=== PATIENT | male | born 1945 | race Caucasian/White ===

== ENCOUNTER 2016-12-24 15:49 | Inpatient (IN) | payer MEDICAID, MEDICARE, OTHER ==
[~2016-12-24] VITALS: Ht 172.7 cm; Wt 119.7 kg
--- NOTE | 2016-12-24 15:56 | NUR ---
PT [facility]IBRA FROM [facility] TO ER BED 09. SEND BY DR HERNANDEZ FOR ABNORMAL LABS. BUN 86 AND CREATININE 4.75. PT IS AAO, VERBALLY RESPONSIVE. GOWNED AND PLACED ON MONITOR. VSS. BLE DISCOLORATION UPON INITIAL ASSESSMENT. AWAITING MD NGO.
--- NOTE | 2016-12-24 15:57 | NUR ---
DR ROTHMAN AT BEDSIDE FOR EVAL.
--- NOTE | 2016-12-24 16:12 | NUR ---
IV LINE STARTED BLOOD DRAWN AND SENT TO LAB.
[2016-12-24 16:18] LABS: BASOPHILS # (AUTO) 0.1 /CMM (0.0-0.2); BASOPHILS % (AUTO) 1.4 % (0.0-2.0); EOSINOPHILS # (AUTO) 0.1 /CMM (0.0-0.7); EOSINOPHILS % (AUTO) 0.8 % (0.0-6.0); HEMATOCRIT 35 % (39-51); HEMOGLOBIN 11.8 g/dL (13.5-17.5); LYMPHOCYTES # (AUTO) 0.9 /CMM (0.8-4.8); LYMPHOCYTES % (AUTO) 8.7 % (20.0-44.0); MEAN CORPUSCULAR HEMOGLOBIN 33 PG (26.0-33.0); MEAN CORPUSCULAR HGB CONC 34 g/dl (31.0-36.0); MEAN CORPUSCULAR VOLUME 97 fL (80-96); MONOCYTES # (AUTO) 0.9 /CMM (0.1-1.30); MONOCYTES % (AUTO) 8.9 % (2.0-12.0); NEUTROPHILS # (AUTO) 7.9 /CMM (1.8-8.9); NEUTROPHILS % (AUTO) 80.2 % (43.0-81.0); PLATELET COUNT (AUTO) 136 /CMM (150-450); RDW COEFFICIENT OF VARIATION 13.8 (11.5-15.0); RED BLOOD CELL COUNT(AUTO) 3.64 MIL/uL (4.5-6.0); WHITE BLOOD COUNT (AUTO) 9.9 K/uL (4.3-11.0)
[2016-12-24] MEDS ORDERED: HYDR-3326 PO (16:39)
[2016-12-24] MEDS ORDERED: AMIO200T2 PO (16:39)
[2016-12-24] MEDS ORDERED: SENN8.6T6 PO (16:39)
[2016-12-24] MEDS ORDERED: BLOO-668 IN (16:39)
[2016-12-24] MEDS ORDERED: DABI150C PO (16:39)
[2016-12-24] MEDS ORDERED: INSU100V7 SQ (16:39)
[2016-12-24] MEDS ORDERED: INSU100V27 SQ (16:39)
[2016-12-24] MEDS ORDERED: GABA-532 PO (16:39)
[2016-12-24] MEDS ORDERED: FURO-144 PO (16:39)
[2016-12-24] MEDS ORDERED: QUET25TA PO ×2 (16:39)
[2016-12-24] MEDS ORDERED: IPRA0.2S9 IH ×2 (16:39)
[2016-12-24] MEDS ORDERED: BENZ-13 PO (16:39)
[2016-12-24] MEDS ORDERED: DOCU-270 PO (16:39)
[2016-12-24] MEDS ORDERED: MAG30ORA PO (16:39)
[2016-12-24] MEDS ORDERED: BISA10SU8 RC (16:39)
[2016-12-24] MEDS ORDERED: ALBU2.5V13 IH ×2 (16:39)
[2016-12-24] MEDS ORDERED: DIVA500T7 PO ×2 (16:39)
[2016-12-24] MEDS ORDERED: DILT120T2 PO (16:39)
[2016-12-24] MEDS ORDERED: LACT10SO7 PO (16:39)
[2016-12-24] MEDS ORDERED: LOPE2TAB25 PO (16:39)
[2016-12-24] MEDS ORDERED: MEMA5TAB PO (16:39)
[2016-12-24 16:41] LABS: INR 3.9 (0.87-1.13); PROTHROMBIN TIME 43.6 SECS (9.5-12.7)
[2016-12-24 16:52] LABS: ALBUMIN 2.4 g/dL (3.4-5.0); BILIRUBIN,DIRECT 0.1 mg/dL (0.0-0.2); BILIRUBIN,TOTAL 0.2 mg/dL (0.2-1.0); CALCIUM, SERUM 8.1 mg/dL (8.5-10.1); CREATININE 4.7 mg/dL (0.6-1.3); POTASSIUM 4.2 mmol/L (3.5-5.1); TOTAL PROTEIN, SERUM 5.7 g/dL (6.4-8.2)
--- NOTE | 2016-12-24 17:20 | NUR ---
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 DR. SHEIKH.
--- NOTE | 2016-12-24 17:35 | NUR ---
DR. ROTHMAN ON THE PHONE WITH DR. SHEIKH.
[2016-12-24] MEDS ORDERED: IV NS 0.9% 1,000 ML IV PRN (17:47)
[2016-12-24] MEDS ORDERED: BISACODYL SUPP (10 MG) 10 MG/SUPP.RECT SUPP.RECT RC PRN (18:00)
[2016-12-24] MEDS ORDERED: Z GUARD REMEDY 2 OZ OINT TP PRN (18:00)
[2016-12-24] MEDS ORDERED: ZOLPIDEM TARTRATE 5 MG TABLET PO PRN (18:00)
[2016-12-24] MEDS ORDERED: DEXTROSE 50%-WATER 50 ML DISP.SYRIN IV PRN (18:00)
[2016-12-24] MEDS ORDERED: BENZONATATE 100 MG CAPSULE PO PRN (18:00)
[2016-12-24] MEDS ORDERED: ACETAMINOPHEN 325 MG TABLET PO PRN (18:00)
[2016-12-24] MEDS ORDERED: IPRATROPIUM NEB FS 0.5 MG/2.5 ML AMPUL.NEB IH PRN (18:00)
[2016-12-24] MEDS ORDERED: ONDANSETRON HCL/PF 4 MG/2 ML VIAL IVP PRN (18:00)
--- NOTE | 2016-12-24 18:19 | NUR ---
PT TO RADIOLOGY FOR HEAD CT SCAN VIA [facility].
--- NOTE | 2016-12-24 19:05 | NUR ---
TELE/RN NOTES NEW ADMITTED PATIENT IS A 71YO MALE WHO ARRRIVED FROM ER FROM [facility] DUE TO ABNORMAL LABS.DX WITH ARF. PATIENT ALERTX1. CONFUSED AND ABLE TO ANSWER WITH TOUCH AND VOICE.WITH HX OF DM, HTN HLD, HF, DEMENTIA CHF AFIB GERD, CHRONIC BACK PAIN, COPD AND PSYCHOSIS.ON TELE, READING AT SR WITH 1ST DEGREE AV BLOCK AND PAC. WITH MENDOZA.REPORTED ABDOMINAL DISTENTION AND REQUIRE MENDOZA AT THIS TIME TO ASSIST. SKIN INTACT WITH DRYNESS.ON CARDIAC DIET, ASPIRATION PRECAUTION.VITAL SIGNS B/P113/64, PULSE 71, R-18, TEMP 97.6. NO PAIN OBSERVED, NO GUARDING AND NO GRIMACE BUT REQUIRE 3L OXYGEN VIA NC
[2016-12-24] MEDS ORDERED: ALBUTEROL FS 2.5 MG/3 ML VIAL.NEB NEB PRN (19:30)
[2016-12-24] MEDS ORDERED: IV SET PRIMARY PUMP SET 1 EA INFUS.SET MC ONE (19:46)
[2016-12-24 20:00] VITALS: BP 111/64
[2016-12-24 20:06] VITALS: BP 113/64
[2016-12-24] MEDS: DIVALPROEX SODIUM 250 MG TABLET.DR PO SCH (21:17)
[2016-12-24] MEDS: QUETIAPINE FUMARATE 100 MG TABLET PO SCH (21:18)
[2016-12-24] MEDS: BLOOD SUGAR DIAGNOSTIC 1 EACH STRIP VI SCH (22:32)
--- NOTE | 2016-12-25 00:03 | NUR ---
TELE/RN NOTES RECEIVED NEW MD ORDER TO COLLECT STOOL ( OCCULT) PER MD ORDER STATING THAT [facility] 2 BLACK STOOL.
[2016-12-25 04:00] VITALS: BP 101/57
[2016-12-25] MEDS: BLOOD SUGAR DIAGNOSTIC 1 EACH STRIP VI SCH ×4 (05:26→22:23)
[2016-12-25] MEDS: *INSULIN REGULAR(HUMULIN R)HUM 100 UNIT/ML VIAL SQ PRN (05:28)
[2016-12-25] MEDS: INSULIN REGULAR, HUMAN 100 UNIT/ML 3 ML VIAL SQ PRN ×3 (05:29→17:14)
--- NOTE | 2016-12-25 06:10 | NUR ---
MS/RN CLOSING NOTES PATIENT IN BED, HOB, AWAKE AND ABLE TO VERBALIZE NEEDS. MORE ALERT AND CAN RESPOND MORE STATED " I FEEL BETTER"ATTEND TO NEEDS. CALL LIGHTS WITHIN REACH. IV ATB ADMINISTERED W/ NO S/S OF ADVERSE REACTION. NO SOB OR DISTRESS. WILL ENDORSE TO AM RN FOR TIFFANY.
[2016-12-25] MEDS: HYDROCODONE/APAP 5/325MG 1 EACH TABLET PO PRN ×2 (06:22→14:43)
[2016-12-25 06:26] VITALS: BP 112/63
--- NOTE | 2016-12-25 06:27 | NUR ---
MS/RN NOTES REPORTED GENERALIZED PAIN OF 7/10, REQUESTED FOR NORCO 5-325 MG PO TAB, PATIENT TOLERATE MEDICATION.WILL RE ASSESS FOR EFFECTIVENESS.
[2016-12-25 06:34] LABS: BASOPHILS % (AUTO) 0.3 % (0.0-2.0); EOSINOPHILS # (AUTO) 0.1 /CMM (0.0-0.7); EOSINOPHILS % (AUTO) 0.5 % (0.0-6.0); HEMATOCRIT 32 % (39-51); HEMOGLOBIN 10.7 g/dL (13.5-17.5); LYMPHOCYTES % (AUTO) 9.6 % (20.0-44.0); MEAN CORPUSCULAR HEMOGLOBIN 33 PG (26.0-33.0); MEAN CORPUSCULAR HGB CONC 34 g/dl (31.0-36.0); MEAN CORPUSCULAR VOLUME 97 fL (80-96); MONOCYTES # (AUTO) 1.1 /CMM (0.1-1.30); MONOCYTES % (AUTO) 10.8 % (2.0-12.0); NEUTROPHILS # (AUTO) 8.3 /CMM (1.8-8.9); NEUTROPHILS % (AUTO) 78.8 % (43.0-81.0); PLATELET COUNT (AUTO) 151 /CMM (150-450); RDW COEFFICIENT OF VARIATION 14.6 (11.5-15.0); RED BLOOD CELL COUNT(AUTO) 3.27 MIL/uL (4.5-6.0); WHITE BLOOD COUNT (AUTO) 10.6 K/uL (4.3-11.0)
[2016-12-25 06:47] LABS: CALCIUM, SERUM 7.9 mg/dL (8.5-10.1); CREATININE 3.3 mg/dL (0.6-1.3); PHOSPHORUS 6.8 mg/dL (2.5-4.9); POTASSIUM 3.9 mmol/L (3.5-5.1)
[2016-12-25 06:48] LABS: MAGNESIUM 2.6 mg/dL (1.8-2.4)
--- NOTE | 2016-12-25 07:00 | NUR ---
PMO CONSULTANT OPENING NOTES REPORT RECEIVED AT THE BEDSIDE. PATIENT IS SLEEPING. NO SOB OR DISTRESS NOTED AT THIS TIME. PATIENT DOES NOT APPEAR TO BE IN PAIN, NO FACIAL GRIMACE NOTED. HEART RATE SR 67 WITH BBB ON THE MONITOR. BED IN A LOW POSITION, CALL LIGHT WITHIN PATIENT REACH. WILL CONTINUE TO MONITOR.
[2016-12-25 08:00] VITALS: BP 121/61
[2016-12-25] MEDS: DIVALPROEX SODIUM 500 MG TABLET.DR PO SCH (08:07)
[2016-12-25] MEDS: DOCUSATE SODIUM 100 MG CAPSULE PO SCH ×2 (08:08→17:12)
[2016-12-25] MEDS: AMIODARONE HCL 200 MG TABLET PO SCH (08:08)
[2016-12-25] MEDS: MEMANTINE HCL 5 MG TABLET PO SCH ×2 (08:09→17:12)
[2016-12-25] MEDS: GABAPENTIN 100 MG CAPSULE PO SCH ×3 (08:09→17:12)
[2016-12-25] MEDS: QUETIAPINE FUMARATE 25 MG TABLET PO SCH ×2 (08:09→17:12)
[2016-12-25] MEDS: PANTOPRAZOLE 40 MG TABLET.DR PO SCH (08:10)
[2016-12-25 10:14] LABS: ALBUMIN 2.3 g/dL (3.4-5.0); BILIRUBIN,DIRECT 0.1 mg/dL (0.0-0.2); BILIRUBIN,TOTAL 0.2 mg/dL (0.2-1.0); TOTAL PROTEIN, SERUM 5.5 g/dL (6.4-8.2)
[2016-12-25 10:51] LABS: THYROID STIMULATING HORMONE 0.487 uIU/mL (0.358-3.74)
[2016-12-25] MEDS: ALBUTEROL FS 2.5 MG/3 ML VIAL.NEB NEB SCH ×3 (11:23→20:26)
[2016-12-25] MEDS: IPRATROPIUM NEB FS 0.5 MG/2.5 ML AMPUL.NEB IH SCH ×3 (11:23→20:25)
[2016-12-25 12:00] VITALS: BP 111/67
[2016-12-25 12:04] LABS: APPEARANCE,URINE SL CLOUDY (CLEAR); BILIRUBIN,URINE NEGATIVE (NEGATIVE); BLOOD, URINE 3+ Ery/uL (NEGATIVE); COLOR,URINE YELLOW (YELLOW); KETONES,URINE NEGATIVE (NEGATIVE); LEUKOCYTE ESTERASE ,URINE NEGATIVE (NEGATIVE); NITRITE, URINE NEGATIVE (NEGATIVE); PROTEIN,URINE 2+ mg/dl (NEGATIVE); UGLUCOSE NEGATIVE (NEGATIVE); UROBILINOGEN,URINE 0.2 EU/dL (0.2)
[2016-12-25 13:53] LABS: ADD URINE CULTURE NO; BACTERIA,URINE None seen /HPF (None Seen); RBC,URINE 81-100 /HPF (0-2); SQUAMOUS EPITHELIAL CELL,UR Few /HPF (None Seen); WBC,URINE 0-2 /HPF (0-3)
[2016-12-25 16:00] VITALS: BP 119/62
--- NOTE | 2016-12-25 18:13 | NUR ---
MS RN NOTES INFORMED MD ABOUT POSITIVE STOOL OB. NO NEW ORDERS. DR SHEIKH STATES TO RECHECK [facility] IN THE MORNING AND GO FROM THERE.
--- NOTE | 2016-12-25 18:44 | NUR ---
MS RN CLOSING NOTES NO SIGNIFICANT CHANGE IN PATIENT CONDITION THROUGHOUT THE SHIFT. NO SOB OR DISTRESS NOTED AT THIS TIME. PATIENT DENIES PAIN. BED IN A LOW POSITION, CALL LIGHT WITHIN PATIENT REACH. WILL ENDORSE FOR TIFFANY.
--- NOTE | 2016-12-25 19:49 | NUR ---
RN OPEN NOTES RECEIVED PATIENT RESTING IN BED. A/O X2. NO SIGNS OF DISTRESS OR DISCOMFORT. BREATHING EVEN AND UNLABORED. ON 2LPM O2 VIA NC. IV ACCESS IN RAC WITH NS INFUSING, PATENT AND INTACT, NO SIGNS OF REDNESS OR INFILTRATION. HAS F/C INTACT WITH CLEAR YELLOW FLUID NOTED. BED IN LOW LOCKED POSITION WITH SIDE RAILS X2. CALL LIGHT WITHIN REACH. WILL CONTINUE TO MONITOR.
[2016-12-25 20:00] VITALS: BP 104/56
[2016-12-25] MEDS: TAMSULOSIN 0.4 MG CAP.SR.24H PO SCH (22:23)
[2016-12-25] MEDS: QUETIAPINE FUMARATE 100 MG TABLET PO SCH (22:23)
[2016-12-25] MEDS: DIVALPROEX SODIUM 250 MG TABLET.DR PO SCH (22:24)
[2016-12-26] MEDS: IPRATROPIUM NEB FS 0.5 MG/2.5 ML AMPUL.NEB IH SCH ×4 (00:40→20:03)
[2016-12-26] MEDS: ALBUTEROL FS 2.5 MG/3 ML VIAL.NEB NEB SCH ×4 (00:41→20:03)
[2016-12-26] MEDS: IV NS 0.9% 1,000 ML IV PRN ×2 (04:20→14:52)
[2016-12-26 06:59] LABS: INR 1.11 (0.87-1.13); PROTHROMBIN TIME 11.9 SECS (9.5-12.7)
--- NOTE | 2016-12-26 07:01 | NUR ---
RN CLOSING NOTES PATIENT RESTING IN BED. A/O X2. NO SIGNS OF DISTRESS OR DISCOMFORT. BREATHING EVEN AND UNLABORED. ON 2LPM O2 VIA NC. IV ACCESS IN RAC WITH NS INFUSING, PATENT AND INTACT, NO SIGNS OF REDNESS OR INFILTRATION. HAS F/C INTACT WITH CLEAR NIEVES FLUID NOTED. NO SIGNIFICANT CHANGES THROUGH THE NIGHT. PATIENT KEPT CLEAN DRY AND COMFORTABLE. REPOSITIONED Q2H. BED IN LOW LOCKED POSITION WITH SIDE RAILS X2. CALL LIGHT WITHIN REACH. WILL ENDORSE TO AM SHIFT FOR TIFFANY. .
[2016-12-26] MEDS: BLOOD SUGAR DIAGNOSTIC 1 EACH STRIP VI SCH ×4 (07:25→22:26)
[2016-12-26] MEDS: *INSULIN REGULAR(HUMULIN R)HUM 100 UNIT/ML VIAL SQ PRN ×2 (07:26→17:20)
[2016-12-26 07:37] LABS: BASOPHILS # (AUTO) 0.1 /CMM (0.0-0.2); BASOPHILS % (AUTO) 0.5 % (0.0-2.0); EOSINOPHILS # (AUTO) 0.1 /CMM (0.0-0.7); EOSINOPHILS % (AUTO) 1.4 % (0.0-6.0); HEMATOCRIT 30 % (39-51); LYMPHOCYTES # (AUTO) 1.2 /CMM (0.8-4.8); LYMPHOCYTES % (AUTO) 11.1 % (20.0-44.0); MEAN CORPUSCULAR HEMOGLOBIN 33 PG (26.0-33.0); MEAN CORPUSCULAR HGB CONC 34 g/dl (31.0-36.0); MEAN CORPUSCULAR VOLUME 97 fL (80-96); MONOCYTES # (AUTO) 1.2 /CMM (0.1-1.30); MONOCYTES % (AUTO) 11.5 % (2.0-12.0); NEUTROPHILS # (AUTO) 7.9 /CMM (1.8-8.9); NEUTROPHILS % (AUTO) 75.5 % (43.0-81.0); PLATELET COUNT (AUTO) 99 /CMM (150-450); RDW COEFFICIENT OF VARIATION 14.6 (11.5-15.0); RED BLOOD CELL COUNT(AUTO) 3.05 MIL/uL (4.5-6.0); WHITE BLOOD COUNT (AUTO) 10.5 K/uL (4.3-11.0)
[2016-12-26] MEDS: PANTOPRAZOLE 40 MG TABLET.DR PO SCH ×2 (07:52→08:26)
[2016-12-26 08:00] VITALS: BP 124/68
--- NOTE | 2016-12-26 08:00 | NUR ---
MS RN NOTE PT. AWAKE, ALERT AND ORIENTED X2. FORGETFUL. VS STABLE. NO FEVER AND SOB. SIDE RAILS UP. CALL LIGHT WITHIN REACH. MONITOR CLOSELY.
[2016-12-26] MEDS: MEMANTINE HCL 5 MG TABLET PO SCH ×2 (08:25→16:57)
[2016-12-26] MEDS: QUETIAPINE FUMARATE 25 MG TABLET PO SCH ×2 (08:25→16:57)
[2016-12-26] MEDS: AMIODARONE HCL 200 MG TABLET PO SCH (08:26)
[2016-12-26] MEDS: GABAPENTIN 100 MG CAPSULE PO SCH ×3 (08:26→16:57)
[2016-12-26] MEDS: DIVALPROEX SODIUM 500 MG TABLET.DR PO SCH (08:26)
[2016-12-26] MEDS: DOCUSATE SODIUM 100 MG CAPSULE PO SCH ×2 (08:27→17:00)
[2016-12-26] MEDS: HYDROCODONE/APAP 5/325MG 1 EACH TABLET PO PRN ×2 (08:43→14:45)
[2016-12-26 09:02] LABS: CREATININE 1.8 mg/dL (0.6-1.3); MAGNESIUM 2.7 mg/dL (1.8-2.4); PHOSPHORUS 3.7 mg/dL (2.5-4.9); POTASSIUM 3.8 mmol/L (3.5-5.1)
[2016-12-26 10:05] LABS: LYMPHOCYTES % (MANUAL) 10 % (16-48); NEUTROPHILS % (MANUAL) 78 (42-76)
[2016-12-26 10:06] LABS: EOSINOPHILS % (MANUAL) 4 % (0-4); MONOCYTES % (MANUAL) 8 % (0-11.0); PLATELET ESTIMATE ADEQUATE
[2016-12-26 16:00] VITALS: BP 126/69
--- NOTE | 2016-12-26 19:00 | NUR ---
CLOSING SHIFT PT. AWAKE, ALERT AND ORIENTED X2. FORGETFUL. NO SOB. COMPLAINTS OF LT KNEE PAIN. HAD TARRY STOOL TWICE ( SMALL AMOUNT). DENIED ABDOMINAL PAIN. NS@125ML/HR IVF. SIDE RAILS UP. CALL LIGHT WITHIN REACH. MONITOR CLOSELY.
[2016-12-26 19:47] VITALS: BP 105/51
[2016-12-26 20:00] VITALS: BP 105/51
[2016-12-26] MEDS: DIVALPROEX SODIUM 250 MG TABLET.DR PO SCH (22:25)
[2016-12-26] MEDS: QUETIAPINE FUMARATE 100 MG TABLET PO SCH (22:26)
[2016-12-26] MEDS: TAMSULOSIN 0.4 MG CAP.SR.24H PO SCH (22:26)
[2016-12-27] MEDS: ALBUTEROL FS 2.5 MG/3 ML VIAL.NEB NEB SCH ×4 (01:14→20:29)
[2016-12-27] MEDS: IPRATROPIUM NEB FS 0.5 MG/2.5 ML AMPUL.NEB IH SCH ×4 (01:14→20:29)
[2016-12-27] MEDS: IV NS 0.9% 1,000 ML IV PRN (03:20)
--- NOTE | 2016-12-27 07:15 | NUR ---
MS RN NOTES RECEIVED PATIENT IN BED, AWAKE. A/O X1 WITH CONFUSION. ON OXYGEN AT 2L/MIN VIA NC, NO SOB NOTED. APPEARS COMFORTABLE IN BED, NO C/O PAIN AT THIS TIME. PLACE CALL LIGHT WITHIN REACH. MENDOZA CATH IN PLACE DRAINING CLEAR YELLOW URINE. WILL CONT TO MONITOR.
[2016-12-27 07:16] LABS: ALBUMIN 1.8 g/dL (3.4-5.0); BILIRUBIN,TOTAL 0.2 mg/dL (0.2-1.0); CREATININE 1.2 mg/dL (0.6-1.3); MAGNESIUM 2.3 mg/dL (1.8-2.4); PHOSPHORUS 1.9 mg/dL (2.5-4.9); POTASSIUM 3.7 mmol/L (3.5-5.1); TOTAL PROTEIN, SERUM 4.8 g/dL (6.4-8.2)
[2016-12-27 07:34] LABS: BASOPHILS % (AUTO) 0.3 % (0.0-2.0); EOSINOPHILS # (AUTO) 0.3 /CMM (0.0-0.7); EOSINOPHILS % (AUTO) 3.2 % (0.0-6.0); HEMATOCRIT 27 % (39-51); LYMPHOCYTES # (AUTO) 1.3 /CMM (0.8-4.8); LYMPHOCYTES % (AUTO) 13.7 % (20.0-44.0); MEAN CORPUSCULAR HEMOGLOBIN 33 PG (26.0-33.0); MEAN CORPUSCULAR HGB CONC 34 g/dl (31.0-36.0); MEAN CORPUSCULAR VOLUME 98 fL (80-96); MONOCYTES # (AUTO) 1.1 /CMM (0.1-1.30); MONOCYTES % (AUTO) 10.8 % (2.0-12.0); NEUTROPHILS # (AUTO) 7.1 /CMM (1.8-8.9); PLATELET COUNT (AUTO) 126 /CMM (150-450); RDW COEFFICIENT OF VARIATION 14.9 (11.5-15.0); RED BLOOD CELL COUNT(AUTO) 2.76 MIL/uL (4.5-6.0); WHITE BLOOD COUNT (AUTO) 9.8 K/uL (4.3-11.0)
[2016-12-27] MEDS: BLOOD SUGAR DIAGNOSTIC 1 EACH STRIP VI SCH ×4 (07:52→22:35)
--- NOTE | 2016-12-27 07:53 | NUR ---
RN CLOSING NOTES PATIENT RESTING IN BED. A/O X2. NO SIGNS OF DISTRESS OR DISCOMFORT. BREATHING EVEN AND UNLABORED. ON 2LPM O2 VIA NC. IV ACCESS IN RAC WITH NS INFUSING, PATENT AND INTACT, NO SIGNS OF REDNESS OR INFILTRATION. HAS F/C INTACT WITH CLEAR YELLOW FLUID NOTED. NO SIGNIFICANT CHANGES THROUGH THE NIGHT. PATIENT KEPT CLEAN DRY AND COMFORTABLE. REPOSITIONED Q2H. BED IN LOW LOCKED POSITION WITH SIDE RAILS X2. CALL LIGHT WITHIN REACH. ENDORSED TO AM SHIFT FOR TIFFANY.
[2016-12-27 08:00] VITALS: BP 121/69
--- NOTE | 2016-12-27 08:10 | NUR ---
MS RN RECEIVED ON BED, AWAKE,CONFUSE, NOT IN ANY FORM OF DISTRESS, RESPIRATIONS EVEN AND UNLABORED,NO SOB NOTED, LUNGS ARE CLEAR,ABDOMEN SOFT,POSITIVE BOWEL SOUNDS, DENIES PAIN AT THIS TIME,ALL NEEDS ATTENDED.
--- NOTE | 2016-12-27 08:50 | NUR ---
MS SARAVIA BREAKFAST SERVED,DUE MEDS GIVEN,TOLERATED WELL.
[2016-12-27] MEDS: PANTOPRAZOLE 40 MG TABLET.DR PO SCH (08:54)
[2016-12-27] MEDS: DOCUSATE SODIUM 100 MG CAPSULE PO SCH ×2 (08:54→17:46)
[2016-12-27] MEDS: DIVALPROEX SODIUM 500 MG TABLET.DR PO SCH (08:54)
[2016-12-27] MEDS: QUETIAPINE FUMARATE 25 MG TABLET PO SCH ×2 (08:54→17:46)
[2016-12-27] MEDS: GABAPENTIN 100 MG CAPSULE PO SCH ×3 (08:54→17:47)
[2016-12-27] MEDS: MEMANTINE HCL 5 MG TABLET PO SCH ×2 (08:54→17:47)
[2016-12-27] MEDS: AMIODARONE HCL 200 MG TABLET PO SCH (09:00)
[2016-12-27] MEDS ORDERED: IV 1/2NS 1000 ML 1,000 ML IV PRN (11:48)
[2016-12-27] MEDS ORDERED: K PHOS NEUTRAL 250 MG TABLET PO ONE (15:00)
[2016-12-27 16:00] VITALS: BP 131/68
--- NOTE | 2016-12-27 18:00 | NUR ---
ms fournier bs -130 - no coverage given.
--- NOTE | 2016-12-27 18:40 | NUR ---
ms rn new iv site inserted at right forearm guage 22 w/ good venous return.
--- NOTE | 2016-12-27 19:16 | NUR ---
ms rn on bed, all needs attended.
--- NOTE | 2016-12-27 19:30 | NUR ---
MS RN NOTE RECEIVED PATIENT AWAKE IN BED. CONFUSED. ATTEMPTED TO RE-ORIENT PATIENT. DENIES ANY PAIN OR DISCOMFORT AT THIS TIME. IV CATHETER SEEN ON BED NEXT TO PATIENT. PATIENT STATED THAT HE DID NOT WANT IT IN ANYMORE. EXPLAINED IMPORTANCE OF IV. STILL REFUSING RE-INSERTION. WILL TRY AGAIN LATER. BED LOCKED AND IN LOWEST POSITION. SIDE RAILS UP, CALL LIGHT WITHIN REACH. WILL CONTINUE TO MONITOR.
[2016-12-27 20:00] VITALS: BP 107/57
[2016-12-27 21:14] VITALS: BP 107/57
[2016-12-27] MEDS: QUETIAPINE FUMARATE 100 MG TABLET PO SCH (22:24)
[2016-12-27] MEDS: DIVALPROEX SODIUM 250 MG TABLET.DR PO SCH (22:24)
[2016-12-27] MEDS: TAMSULOSIN 0.4 MG CAP.SR.24H PO SCH (22:24)
[2016-12-28] MEDS: IPRATROPIUM NEB FS 0.5 MG/2.5 ML AMPUL.NEB IH SCH ×3 (01:14→13:15)
[2016-12-28] MEDS: ALBUTEROL FS 2.5 MG/3 ML VIAL.NEB NEB SCH ×3 (01:14→13:15)
--- NOTE | 2016-12-28 06:57 | NUR ---
MS RN NOTE PATIENT STABLE. KEPT CLEAN, DRY AND COMFORTABLE. MENDOZA CATHETER INTACT. WITH CLEAR YELLOW URINE NOTED. BLOOD SUGAR 117. NO COVERAGE NEEDED. WILL ENDORSE TO DAY SHIFT FOR TIFFANY.
[2016-12-28 07:04] LABS: BASOPHILS % (AUTO) 0.3 % (0.0-2.0); EOSINOPHILS # (AUTO) 0.4 /CMM (0.0-0.7); EOSINOPHILS % (AUTO) 3.9 % (0.0-6.0); HEMATOCRIT 31 % (39-51); HEMOGLOBIN 10.4 g/dL (13.5-17.5); LYMPHOCYTES # (AUTO) 1.9 /CMM (0.8-4.8); LYMPHOCYTES % (AUTO) 20.8 % (20.0-44.0); MEAN CORPUSCULAR HEMOGLOBIN 33 PG (26.0-33.0); MEAN CORPUSCULAR HGB CONC 34 g/dl (31.0-36.0); MEAN CORPUSCULAR VOLUME 99 fL (80-96); MONOCYTES # (AUTO) 0.8 /CMM (0.1-1.30); MONOCYTES % (AUTO) 9.1 % (2.0-12.0); NEUTROPHILS # (AUTO) 6.1 /CMM (1.8-8.9); NEUTROPHILS % (AUTO) 65.9 % (43.0-81.0); PLATELET COUNT (AUTO) 137 /CMM (150-450); RDW COEFFICIENT OF VARIATION 14.7 (11.5-15.0); RED BLOOD CELL COUNT(AUTO) 3.11 MIL/uL (4.5-6.0); WHITE BLOOD COUNT (AUTO) 9.2 K/uL (4.3-11.0)
[2016-12-28 07:19] LABS: ALBUMIN 1.9 g/dL (3.4-5.0); BILIRUBIN,TOTAL 0.2 mg/dL (0.2-1.0); CALCIUM, SERUM 8.6 mg/dL (8.5-10.1); CREATININE 1.1 mg/dL (0.6-1.3); MAGNESIUM 2.2 mg/dL (1.8-2.4); PHOSPHORUS 3.4 mg/dL (2.5-4.9); TOTAL PROTEIN, SERUM 5.4 g/dL (6.4-8.2)
[2016-12-28] MEDS: BLOOD SUGAR DIAGNOSTIC 1 EACH STRIP VI SCH ×2 (07:34→12:36)
--- NOTE | 2016-12-28 07:37 | NUR ---
MS RN OPENING NOTES: PATIENT SLEEPING IN BED. PATIENT DOES NOT HAVE IV. PT REFUSED. PATIENT HAS A MENDOZA AND INTACT. WITH CLEAR YELLOW URINE NOTED. PATIENT STABLE. KEPT CLEAN, DRY, AND COMFORTABLE.
[2016-12-28 08:00] VITALS: BP 115/60
[2016-12-28] MEDS: DOCUSATE SODIUM 100 MG CAPSULE PO SCH (08:34)
[2016-12-28] MEDS: PANTOPRAZOLE 40 MG TABLET.DR PO SCH (08:34)
[2016-12-28] MEDS: QUETIAPINE FUMARATE 25 MG TABLET PO SCH (08:34)
[2016-12-28] MEDS: GABAPENTIN 100 MG CAPSULE PO SCH ×2 (08:35→12:37)
[2016-12-28] MEDS: MEMANTINE HCL 5 MG TABLET PO SCH (08:35)
[2016-12-28 08:36] VITALS: BP 115/60
[2016-12-28] MEDS: DIVALPROEX SODIUM 500 MG TABLET.DR PO SCH (08:36)
[2016-12-28] MEDS: AMIODARONE HCL 200 MG TABLET PO SCH (08:36)
--- NOTE | 2016-12-28 12:36 | NUR ---
MS RN NOTES: BLOOD SUGAR WAS 117. NO COVERAGE GIVEN.
[2016-12-28] MEDS: INSULIN REGULAR, HUMAN 100 UNIT/ML 3 ML VIAL SQ PRN (13:30)
--- NOTE | 2016-12-28 14:30 | NUR ---
ms internet cafe manager notes Discharge instructions given to Tea SARAVIA at [facility] and able to understand instructions. Patient is confused unable to say when was his vaccination done. Pictures taken and filed in the chart. 2 nurses signed discharge paper. Vital signs checked and recorded. No SOB or distress noted. 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 MD and charge nurse aware.
== END 2016-12-28 14:15 | DRG 682 ==
LOC: ER 15:51 → TELE 17:22 → MED 12-25 09:15
PROVIDERS: ADMIT Internal Medicine; ATTEND Internal Medicine
DX: N17.0 Acute kidney failure with tubular necrosis (principal); E43 Unspecified severe protein-calorie malnutrition; D68.69 Other thrombophilia; I50.32 Chronic diastolic (congestive) heart failure; E87.0 Hyperosmolality and hypernatremia; Z68.41 Body mass index [BMI] 40.0-44.9, adult; K92.2 Gastrointestinal hemorrhage, unspecified; N13.30 Unspecified hydronephrosis; E11.9 Type 2 diabetes mellitus without complications; D63.8 Anemia in other chronic diseases classified elsewhere; I48.0 Paroxysmal atrial fibrillation; K21.9 Gastro-esophageal reflux disease without esophagitis; Z79.01 Long term (current) use of anticoagulants; Z79.4 Long term (current) use of insulin; E66.9 Obesity, unspecified; E78.5 Hyperlipidemia, unspecified; Z87.891 Personal history of nicotine dependence; G47.33 Obstructive sleep apnea (adult) (pediatric); R19.5 Other fecal abnormalities; K56.41 Fecal impaction; F03.90 Unspecified dementia, unspecified severity, without behavioral disturbance, psychotic disturbance, mood disturbance, and anxiety; Z79.899 Other long term (current) drug therapy; J44.9 Chronic obstructive pulmonary disease, unspecified; I11.0 Hypertensive heart disease with heart failure; Z88.2 Allergy status to sulfonamides
CPT/HCPCS: 36415; 70450-TC; 71010-TC; 74000-TC; 76770-TC; 80048-TC; 80053-TC; 80061-TC; 80076-TC; 81000-TC; 82272-TC; 82306; 82728-TC; 82962-TC; 83540-TC; 83735-TC; 84100-TC; 84439-TC; 84443-TC; 85025-TC; 85610-TC; 85730-TC; 87081-TC; 93307-TC; 94799-TC; 97001-TC; 97110-TC; 97530-TC; A4606; J1815; J7030; Z7610